=== PATIENT | female | born 1985 | race Caucasian/White ===

== ENCOUNTER 2016-12-13 18:57 | Emergency (ER) | payer SELFPAY ==
--- NOTE | 2016-12-13 19:12 | EDM.PDOC ---
ED HPI GENERAL MEDICAL PROBLEM - General Chief Complaint: Headache Stated Complaint: PT HAS MIGRAINE Time Seen by Provider: 12/13/16 19:04 - History of Present Illness INITIAL COMMENTS - FREE TEXT/NARRATIVE: HISTORY AND PHYSICAL: History of present illness: Patient 31-year-old female history of anxiety or presents with a concern of sharp pains in her had left ear pain and facial paresthesias she is extremely anxious on arrival she denies any other neurological signs or symptoms or any other complaint Review of systems: As per history of present illness and below otherwise all systems reviewed and negative. Past medical history: As per history of present illness and as reviewed below otherwise noncontributory. Surgical history: As per history of present illness and as reviewed below otherwise noncontributory. Social history: No reported history of drug or alcohol abuse. Family history: As per history of present illness and as reviewed below otherwise noncontributory. Physical exam: HEENT: Atraumatic, normocephalic, pupils reactive, negative for conjunctival pallor or scleral icterus, mucous membranes moist, throat clear, neck supple, nontender, trachea midline. TMs are normal bilaterally Lungs: Clear to auscultation, breath sounds equal bilaterally, chest nontender. Heart: S1S2, regular, negative for clicks, rubs, or JVD. Abdomen: Soft, nondistended, nontender. Negative for masses or hepatosplenomegaly. Negative for costovertebral tenderness. Pelvis: Stable nontender. 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: Deferred. Rectal: Deferred. Extremities: Atraumatic, negative for cords or calf pain. Neurovascular unremarkable. Neuro: Awake, alert, oriented, anxious. Cranial nerves II through XII unremarkable. Cerebellum unremarkable. Motor and sensory unremarkable throughout. Exam nonfocal. Diagnostics: CT brain Therapeutics: None Impression: #1 cephalgia/otalgia #2 anxiety Definitive disposition and diagnosis as appropriate pending reevaluation and review of above. headache Pain Score (Numeric/FACES): 1 - Related Data Allergies Allergy/AdvReac Type Severity Reaction Status Date / Time codeine Allergy Irritabilit Verified 12/13/16 19:02 y Home Meds: Home Meds Levothyroxine Sodium [Synthroid] 1 tab PO DAILY 02/28/16 [History] Mesalamine [Lialda] 2 tab PO DAILY 02/28/16 [History] Multivitamin with Minerals [Hair, Skin and Nails] 1 tab PO DAILY 02/28/16 [ History] #103/Iron Fumarate/Fa [ ] 1 tab PO DAILY 02/28/16 [ History] prednisoLONE Acetate [Pred Forte 1% Ophth Susp] 1 drop EYEBOTH QID PRN 02/28/16 [History] Past Medical History - Past Health History Medical/Surgical History: Denies Medical/Surgical History HEENT History: Reports: None, Other (See Below) Other HEENT History: wears glasses, has iritis Cardiovascular History: Reports: None Other Cardiovascular History: HTN during Respiratory History: Reports: None Gastrointestinal History: Reports: None Other Gastrointestinal History: colitis 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 History: Reports: None 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 Musculoskeletal History: Reports: None Neurological History: Reports: None Psychiatric History: Reports: Anxiety Endocrine/Metabolic History: Reports: Hypothyroidism, Obesity/BMI 30+ Hematologic History: Reports: None Immunologic History: Reports: None Oncologic (Cancer) History: Reports: None Dermatologic History: Reports: None - Infectious Disease History Infectious Disease History: Reports: None - Past Surgical History Head Surgeries/Procedures: Reports: None Cardiovascular Surgical History: Reports: None Respiratory Surgical History: Reports: None GI Surgical History: Reports: Colonoscopy Female Surgical History: Reports: None Endocrine Surgical History: Reports: None Neurological Surgical History: Reports: None Musculoskeletal Surgical History: Reports: Arthroscopic Knee, Other (See Below) Oncologic Surgical History: Reports: None Social & Family History - Family History Family Medical History: Noncontributory - Tobacco Use Smoking Status *Q: Never Smoker Second Hand Smoke Exposure: No - Caffeine Use Caffeine Use: Reports: Coffee - Alcohol Use Days Per Week of Alcohol Use: 0 - Recreational Drug Use Recreational Drug Use: No Drug Use in Last 12 Months: No ED ROS GENERAL - Review of Systems Review Of Systems: ROS reveals no pertinent complaints other than HPI. ED EXAM, GENERAL - Physical Exam Exam: See Below (See dictation) Course - Vital Signs Last Recorded V/S: Last Vital Signs Temp 36.9 C 12/13/16 19:02 Pulse 71 12/13/16 19:02 Resp 16 12/13/16 19:02 BP 131/61 12/13/16 19:02 Pulse Ox 98 12/13/16 19:02 - Orders/Labs/Meds Orders: Active Orders 24 hr Category Date Time Status Head wo Cont [CT] Stat Exams 12/13/16 19:10 Ordered Departure - Departure Time of Disposition: 19:35 Disposition: Home, Self-Care 01 Clinical Impression: Cephalgia, Otalgia, Anxiety - Discharge Information Forms: ED Department Discharge Additional Instructions: The following information is given to patients seen in the emergency department who are being discharged to home. This information is to outline your options for follow-up care. We provide all patients seen in our emergency department with a follow-up referral. The need for follow-up, as well as the timing and circumstances, are variable depending upon the specifics of your emergency department visit. If you don't have a primary care physician on staff, we will provide you with a referral. We always advise you to contact your personal physician following an emergency department visit to inform them of the circumstance of the visit and for follow-up with them and/or the need for any referrals to a consulting specialist. The emergency department will also refer you to a specialist when appropriate. This referral assures that you have the opportunity for followup care with a specialist. All of these measure are taken in an effort to provide you with optimal care, which includes your followup. Under all circumstances we always encourage you to contact your private physician who remains a resource for coordinating your care. When calling for followup care, please make the office aware that this follow-up is from your recent emergency room visit. If for any reason you are refused follow-up, please contact the [facility] emergency department at and asked to speak to the emergency department charge nurse. Follow-up primary medical doctor wanted today's return as needed as discussed - My Orders Last 24 Hours: My Active Orders 12/13/16 19:10 Head wo Cont [CT] Stat - Assessment/Plan Last 24 Hours: My Active Orders 12/13/16 19:10 Head wo Cont [CT] Stat
[2016-12-13 20:26] VITALS: BP 107/66
--- NOTE | 2016-12-14 16:45 | CT ---
EXAM DATE: 12/13/16 PATIENT'S AGE: 31 Patient: GENNY RODRIGUEZ Facility: [place], [place] Site . Site : 1985 Study: CT Head [id number] 7:43:34 PM Ordering Physician: Sanchez Hernández Final Report: INDICATION: Headache TECHNIQUE: CT head without contrast. COMPARISON: None FINDINGS: CSF spaces: Within normal limits for age. Brain parenchyma: The smith-white differentiation is normal. No sign of mass, hemorrhage, or midline shift. Skull base and calvarium: The visualized paranasal sinuses and mastoid air cells demonstrate no acute or significant findings. The visualized orbits are grossly unremarkable. No skull fractures. IMPRESSION: Unremarkable noncontrast head CT. Please note that all CT scans at this facility use dose modulation, iterative reconstruction, and/or weight-based dosing when appropriate to reduce radiation dose to as low as reasonably achievable. Dictated by Andra Jara MD @ Dec 13 2016 7:58PM (Electronic Signature) Report Signed by Proxy. MTDD
== END 2016-12-13 20:23 | disposition home or self-care (01) ==
LOC: MW.ED 18:57
DX: R51 Headache (principal); F41.9 Anxiety disorder, unspecified; E66.9 Obesity, unspecified; Z98.890 Other specified postprocedural states; Z79.899 Other long term (current) drug therapy; Z88.5 Allergy status to narcotic agent
CPT/HCPCS: 70450; 70450-26; 99282; 99284-25

== ENCOUNTER 2018-07-25 01:42 | Emergency (ER) | payer OTHER ==
--- NOTE | 2018-07-25 01:45 | EDM.PDOC ---
ED HPI GENERAL MEDICAL PROBLEM - General Stated Complaint: PERSISTENT HEADACHE Time Seen by Provider: 07/25/18 01:45 Source of Information: Reports: Patient - History of Present Illness INITIAL COMMENTS - FREE TEXT/NARRATIVE: HISTORY AND PHYSICAL: History of present illness: [Patient presents with persistent headache 5 out of 10 right unilateral with scotomas and sister with migraine No vomiting chills sweats no chest pain dizziness or palpitation no bowel or urine symptoms ] Review of systems: As per history of present illness and below otherwise all systems reviewed and negative. Past medical history: As per history of present illness and as reviewed below otherwise noncontributory. Surgical history: As per history of present illness and as reviewed below otherwise noncontributory. Social history: No reported history of drug or alcohol abuse. Family history: As per history of present illness and as reviewed below otherwise noncontributory. Physical exam: HEENT: Atraumatic, normocephalic, pupils reactive, negative for conjunctival pallor or scleral icterus, mucous membranes moist, throat clear, neck supple, nontender, trachea midline. Tympanic membrane red and bulging on the right no mastoid tenderness left is dull no bulging no mastoid tenderness no meningeal signs no sinus tenderness mild pain with movement of the auricle Lungs: Clear to auscultation, breath sounds equal bilaterally, chest nontender. Heart: S1S2, regular, negative for clicks, rubs, or JVD. Abdomen: Soft, nondistended, nontender. Negative for masses or hepatosplenomegaly. Negative for costovertebral tenderness. Pelvis: Stable nontender. 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: Deferred. Rectal: Deferred. Extremities: Atraumatic, negative for cords or calf pain. Neurovascular unremarkable. Neuro: Awake, alert, oriented. Cranial nerves II through XII unremarkable. Cerebellum unremarkable. Motor and sensory unremarkable throughout. Exam nonfocal. Diagnostics:Clinical CT head on file from 2017 ] Therapeutics: [Will saline Zofran Toradol Maxalt Amoxicillin Cortisporin ] Impression: [ migraine ] Otitis media/otitis externa Definitive disposition and diagnosis as appropriate pending reevaluation and review of above. headache Pain Score (Numeric/FACES): 7 - Related Data Allergies Allergy/AdvReac Type Severity Reaction Status Date / Time codeine Allergy Irritabilit Verified 05/16/18 15:53 y Home Meds: Home Meds Levothyroxine Sodium [Synthroid] 1 tab PO DAILY 02/28/16 [History] prednisoLONE Acetate [Pred Forte 1% Ophth Susp] 1 drop EYEBOTH QID PRN 02/28/16 [History] Past Medical History - Past Health History Medical/Surgical History: Denies Medical/Surgical History HEENT History: Reports: None, Other (See Below) Other HEENT History: wears glasses, has iritis Cardiovascular History: Reports: None Other Cardiovascular History: HTN during Respiratory History: Reports: None Gastrointestinal History: Reports: None Other Gastrointestinal History: colitis 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 History: Reports: 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 Musculoskeletal History: Reports: None Neurological History: Reports: None Psychiatric History: Reports: Anxiety Endocrine/Metabolic History: Reports: Hypothyroidism, Obesity/BMI 30+ Hematologic History: Reports: None Immunologic History: Reports: None Oncologic (Cancer) History: Reports: None Dermatologic History: Reports: None - Infectious Disease History Infectious Disease History: Reports: None - Past Surgical History Head Surgeries/Procedures: Reports: None Cardiovascular Surgical History: Reports: None Respiratory Surgical History: Reports: None GI Surgical History: Reports: Colonoscopy Female Surgical History: Reports: None Endocrine Surgical History: Reports: None Neurological Surgical History: Reports: None Musculoskeletal Surgical History: Reports: Arthroscopic Knee, Other (See Below) Oncologic Surgical History: Reports: None Social & Family History - Family History Family Medical History: Noncontributory - Caffeine Use Caffeine Use: Reports: Coffee ED ROS GENERAL - Review of Systems Review Of Systems: See Below ED EXAM, GENERAL - Physical Exam Exam: See Below Course - Vital Signs Last Recorded V/S: Last Vital Signs Temp 97.8 F 07/25/18 01:53 Pulse 78 07/25/18 01:53 Resp 18 07/25/18 01:53 BP 131/95 H 07/25/18 01:53 Pulse Ox 98 07/25/18 01:53 - Orders/Labs/Meds Meds: Medications Discontinued Medications Generic Name Dose Route Start Last Admin Trade Name Freq PRN Reason Stop Dose Admin Sodium Chloride 1,000 mls @ 999 mls/hr 07/25/18 01:46 07/25/18 02:14 Normal Saline IV 07/25/18 02:46 999 mls/hr STAT ONE Administration Ketorolac Tromethamine 30 mg 07/25/18 01:46 07/25/18 02:15 Toradol IVPUSH 07/25/18 01:47 30 mg ONETIME ONE Administration Ondansetron HCl 8 mg 07/25/18 01:46 07/25/18 02:18 Zofran IVPUSH 07/25/18 01:47 8 mg ONETIME ONE Administration Departure - Departure Time of Disposition: 02:54 Disposition: Home, Self-Care 01 Condition: Good Clinical Impression: Migraine, Otitis media, Otitis externa - Discharge Information Referrals: Ruddy Braga MD [Primary Care Provider] - Additional Instructions: The following information is given to patients seen in the emergency department who are being discharged to home. This information is to outline your options for follow-up care. We provide all patients seen in our emergency department with a follow-up referral. The need for follow-up, as well as the timing and circumstances, are variable depending upon the specifics of your emergency department visit. If you don't have a primary care physician on staff, we will provide you with a referral. We always advise you to contact your personal physician following an emergency department visit to inform them of the circumstance of the visit and for follow-up with them and/or the need for any referrals to a consulting specialist. The emergency department will also refer you to a specialist when appropriate. This referral assures that you have the opportunity for follow-up care with a specialist. All of these measure are taken in an effort to provide you with optimal care, which includes your follow-up. Under all circumstances we always encourage you to contact your private physician who remains a resource for coordinating your care. When calling for follow-up care, please make the office aware that this follow-up is from your recent emergency room visit. If for any reason you are refused follow-up, please contact the [facility] emergency department at and asked to speak to the emergency department charge nurse.
[2018-07-25] MEDS ORDERED: Sodium Chloride 0.9% 1,000 ML IV ONE (01:46)
[2018-07-25] MEDS ORDERED: Ketorolac 30 MG/ML SDV IVPUSH ONE (01:46)
[2018-07-25] MEDS ORDERED: Ondansetron 4 MG/2 ML SDV IVPUSH ONE (01:46)
[2018-07-25] MEDS ORDERED: SUMAtriptan 50 MG Tab PO ONE (02:57)
[2018-07-25 03:31] VITALS: BP 109/61
== END 2018-07-25 03:15 | disposition home or self-care (01) ==
LOC: MW.ED 01:42
DX: G43.909 Migraine, unspecified, not intractable, without status migrainosus (principal); H60.91 Unspecified otitis externa, right ear; H66.91 Otitis media, unspecified, right ear; E03.9 Hypothyroidism, unspecified; Z88.5 Allergy status to narcotic agent; Z79.899 Other long term (current) drug therapy
CPT/HCPCS: 96361; 96374; 96375; 99284; A9270; J1885; J2405; J7040; 99283

== ENCOUNTER 2018-10-13 23:39 | Emergency (ER) | payer OTHER ==
[2018-10-14] MEDS ORDERED: Ketorolac 30 MG/ML SDV IVPUSH ONE
[2018-10-14] MEDS ORDERED: Ondansetron 4 MG/2 ML SDV IVPUSH ONE
[2018-10-14] MEDS ORDERED: Sodium Chloride 0.9% 2.5 ML Syringe FLUSH PRN
[2018-10-14] MEDS ORDERED: Sodium Chloride 0.9% 1,000 ML IV ONE
[2018-10-14] MEDS ORDERED: Sodium Chloride 0.9% 10 ML Syringe FLUSH PRN
[2018-10-14] MEDS ORDERED: methylPREDNISolone Sodium Succinate 125 MG/2 ML SDV IVPUSH ONE
--- NOTE | 2018-10-14 00:02 | EDM.PDOC ---
ED HPI GENERAL MEDICAL PROBLEM - General Chief Complaint: Headache Stated Complaint: HEADACHE Time Seen by Provider: 10/13/18 23:55 - History of Present Illness INITIAL COMMENTS - FREE TEXT/NARRATIVE: HISTORY AND PHYSICAL: History of present illness: The patient is a 33-year-old female who follows in our clinics and has a long- standing history of chronic headaches and migraines mostly on the right side and was last seen here in July for similar headache and presents with a right-sided headache that started earlier today it has been ongoing all day. She says that initially his Tylenol was working but now it is not working and she does have Imitrex but she doesn't like to use it because she doesn't like the way it makes her feel. The patient has a scheduled appointment with neurology in the summer and has never had imaging or these headaches. She is concerned because it came on very suddenly and the Tylenol initially worked and then stopped working. She has nausea with this but no vomiting, she has not had any recent trauma or upper respiratory infection and she has no neck or back pain. The patient denies but is not taking any control. Review of systems: As per history of present illness and below otherwise all systems reviewed and negative. Past medical history: As per history of present illness and as reviewed below otherwise noncontributory. Surgical history: As per history of present illness and as reviewed below otherwise noncontributory. Social history: No reported history of drug or alcohol abuse. Family history: As per history of present illness and as reviewed below otherwise noncontributory. Physical exam: General: Well-developed well-nourished female who is nontoxic and vital signs are noted by me. HEENT: Atraumatic, normocephalic, pupils reactive, negative for conjunctival pallor or scleral icterus, mucous membranes moist, throat clear, neck supple, nontender, trachea midline. There is no cervical adenopathy or nuchal rigidity Lungs: Clear to auscultation, breath sounds equal bilaterally, chest nontender. Heart: S1S2, regular rate and rhythm no overt murmurs Abdomen: Soft, nondistended, nontender. NABS Pelvis: Deferred 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: Deferred. Rectal: Deferred. Extremities: Atraumatic, negative for cords or calf pain. Neurovascular unremarkable. Neuro: Awake, alert, oriented. Cranial nerves II through XII unremarkable. Cerebellum unremarkable. Motor and sensory unremarkable throughout. Exam nonfocal. Diagnostics: UCG, CT scan of the head Therapeutics: IV fluids Toradol Zofran and Solu-Medrol Impression: Headache/migraine and with history of same Definitive disposition and diagnosis as appropriate pending reevaluation and review of above. Right Headache Pain Score (Numeric/FACES): 8 - Related Data Allergies Allergy/AdvReac Type Severity Reaction Status Date / Time codeine Allergy Irritabilit Verified 10/13/18 23:55 y Home Meds: Home Meds Levothyroxine Sodium [Synthroid] 100 mg PO DAILY 02/28/16 [History] Past Medical History - Past Health History Medical/Surgical History: Denies Medical/Surgical History HEENT History: Reports: None, Other (See Below) Other HEENT History: wears glasses, has iritis Cardiovascular History: Reports: Other (See Below) Other Cardiovascular History: HTN during Respiratory History: Reports: None Gastrointestinal History: Reports: None Other Gastrointestinal History: colitis 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 History: Reports: None 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 Musculoskeletal History: Reports: None Neurological History: Reports: None Psychiatric History: Reports: Anxiety Endocrine/Metabolic History: Reports: Hypothyroidism, Obesity/BMI 30+ Hematologic History: Reports: None Immunologic History: Reports: None Oncologic (Cancer) History: Reports: None Dermatologic History: Reports: None - Infectious Disease History Infectious Disease History: Reports: None - Past Surgical History Head Surgeries/Procedures: Reports: None Cardiovascular Surgical History: Reports: None Respiratory Surgical History: Reports: None GI Surgical History: Reports: Colonoscopy Female Surgical History: Reports: None Endocrine Surgical History: Reports: None Neurological Surgical History: Reports: None Musculoskeletal Surgical History: Reports: Arthroscopic Knee, Other (See Below) Oncologic Surgical History: Reports: None Social & Family History - Family History Family Medical History: Noncontributory - Tobacco Use Smoking Status *Q: Never Smoker - Caffeine Use Caffeine Use: Reports: Coffee - Recreational Drug Use Recreational Drug Use: No ED ROS GENERAL - Review of Systems Review Of Systems: ROS reveals no pertinent complaints other than HPI. ED EXAM, GENERAL - Physical Exam Exam: See Below (see Dictation) Course - Vital Signs Last Recorded V/S: Last Vital Signs Temp 36.4 C 10/13/18 23:49 Pulse 97 10/13/18 23:49 Resp BP 121/83 10/13/18 23:49 Pulse Ox 99 10/13/18 23:49 - Orders/Labs/Meds Orders: Active Orders 24 hr Category Date Time Status Sodium Chloride 0.9% [Saline Flush] Med 10/14/18 00:00 Active 10 ml FLUSH ASDIRECTED PRN Sodium Chloride 0.9% [Saline Flush] Med 10/14/18 00:00 Active 2.5 ml FLUSH ASDIRECTED PRN Saline Lock Insert [OM.PC] Stat Oth 10/14/18 00:00 Ordered Medication Orders Sodium Chloride (Saline Flush) 10 ml FLUSH ASDIRECTED PRN PRN Reason: Keep Vein Open Last Admin: 10/14/18 00:23 Dose: 10 ml Sodium Chloride (Saline Flush) 2.5 ml FLUSH ASDIRECTED PRN PRN Reason: Keep Vein Open Last Admin: 10/14/18 00:23 Dose: 2.5 ml Labs: Laboratory Tests 10/14/18 Range/Units 00:04 Urine HCG, Qual NEGATIVE (NEGATIVE) Meds: Medications Generic Name Dose Route Start Last Admin Trade Name Freq PRN Reason Stop Dose Admin Sodium Chloride 10 ml 10/14/18 00:00 10/14/18 00:23 Saline Flush FLUSH 10 ml ASDIRECTED PRN Administration Keep Vein Open Sodium Chloride 2.5 ml 10/14/18 00:00 10/14/18 00:23 Saline Flush FLUSH 2.5 ml ASDIRECTED PRN Administration Keep Vein Open Discontinued Medications Generic Name Dose Route Start Last Admin Trade Name Freq PRN Reason Stop Dose Admin Sodium Chloride 1,000 mls @ 999 mls/hr 10/14/18 00:00 10/14/18 00:23 Normal Saline IV 10/14/18 01:00 999 mls/hr STAT ONE Administration Ketorolac Tromethamine 30 mg 10/14/18 00:00 10/14/18 00:23 Toradol IVPUSH 10/14/18 00:01 30 mg ONETIME ONE Administration Methylprednisolone Sodium Succinate 125 mg 10/14/18 00:00 10/14/18 00:23 Solu-Medrol IVPUSH 10/14/18 00:01 125 mg ONETIME ONE Administration Ondansetron HCl 4 mg 10/14/18 00:00 10/14/18 00:23 Zofran IVPUSH 10/14/18 00:01 4 mg ONETIME ONE Administration Departure - Departure Time of Disposition: 01:12 Disposition: Home, Self-Care 01 Condition: Good Clinical Impression: Migraine headache Qualifiers: Migraine type: unspecified Status migrainosus presence: without status migrainosus Intractability: not intractable Qualified Code(s): G43.909 - Migraine, unspecified, not intractable, without status migrainosus - Discharge Information Referrals: PCP,None [Primary Care Provider] - Forms: ED Department Discharge Additional Instructions: The following information is given to patients seen in the emergency department who are being discharged to home. This information is to outline your options for follow-up care. We provide all patients seen in our emergency department with a follow-up referral. The need for follow-up, as well as the timing and circumstances, are variable depending upon the specifics of your emergency department visit. If you don't have a primary care physician on staff, we will provide you with a referral. We always advise you to contact your personal physician following an emergency department visit to inform them of the circumstance of the visit and for follow-up with them and/or the need for any referrals to a consulting specialist. The emergency department will also refer you to a specialist when appropriate. This referral assures that you have the opportunity for followup care with a specialist. All of these measure are taken in an effort to provide you with optimal care, which includes your followup. Under all circumstances we always encourage you to contact your private physician who remains a resource for coordinating your care. When calling for followup care, please make the office aware that this follow-up is from your recent emergency room visit. If for any reason you are refused follow-up, please contact the [facility] emergency department at and ask to speak to the emergency department charge nurse. [facility] Primary care- Internal Medicine and Family [address] [address] Please contact your provider in the clinic and discuss with them follow-up care for this ER visit. Push push hydration and rest and return to ER as needed and as discussed. Use [id number] meds as you choose for pain management. - My Orders Last 24 Hours: My Active Orders 10/14/18 00:00 Sodium Chloride 0.9% [Saline Flush] 10 ml FLUSH ASDIRECTED PRN Sodium Chloride 0.9% [Saline Flush] 2.5 ml FLUSH ASDIRECTED PRN Saline Lock Insert [OM.PC] Stat - Assessment/Plan Last 24 Hours: My Active Orders 10/14/18 00:00 Sodium Chloride 0.9% [Saline Flush] 10 ml FLUSH ASDIRECTED PRN Sodium Chloride 0.9% [Saline Flush] 2.5 ml FLUSH ASDIRECTED PRN Saline Lock Insert [OM.PC] Stat
--- NOTE | 2018-10-14 01:04 | CT ---
INDICATION: Headache TECHNIQUE: CT Head without i.v. contrast. COMPARISON: 12/23/16 FINDINGS: CSF space: The ventricles are normal for age. Brain: No evidence of mass, acute infarction or hemorrhage is seen. No mass-effect or midline shift is seen. The brain parenchyma is otherwise normal in appearance with preservation of the smith-white matter junction. Calvarium: The visualized paranasal sinuses are well aerated. The mastoid air cells are clear. The visualized orbits are grossly unremarkable. The calvarium is unremarkable in appearance with no fractures identified. IMPRESSION: 1. No evidence of acute infarction, intracranial hemorrhage, or mass-effect seen. Please note that all CT scans at this facility use dose modulation, iterative reconstruction, and/or weight-based dosing when appropriate to reduce radiation dose to as low as reasonably achievable. Dictated by: Jenaro Gonzalez MD @ 10/14/2018 01:03:01 (Electronically Signed)
[2018-10-14 01:30] VITALS: BP 111/63
== END 2018-10-14 01:28 | disposition home or self-care (01) ==
LOC: MW.ED 23:39
DX: G43.909 Migraine, unspecified, not intractable, without status migrainosus (principal); E03.9 Hypothyroidism, unspecified; E66.9 Obesity, unspecified; Z88.5 Allergy status to narcotic agent; Z79.899 Other long term (current) drug therapy
CPT/HCPCS: 70450; 81025; 96361; 96374; 96375; 99284; J1885; J2405; J2930; J7040; 99283

== ENCOUNTER 2019-07-01 12:02 | Emergency (ER) | payer OTHER ==
[2019-07-01] MEDS ORDERED: Sodium Chloride 0.9% 1,000 ML IV ONE (12:44)
[2019-07-01] MEDS ORDERED: Famotidine 20 MG/2 ML SDV IVPUSH ONE (12:44)
[2019-07-01] MEDS ORDERED: Ondansetron 4 MG/2 ML SDV IVPUSH ONE (13:17)
--- NOTE | 2019-07-01 13:45 | EDM.PDOC ---
ED HPI GENERAL MEDICAL PROBLEM - General Chief Complaint: Abdominal Pain Stated Complaint: liver issues Time Seen by Provider: 07/01/19 12:08 - History of Present Illness INITIAL COMMENTS - FREE TEXT/NARRATIVE: Patient seen by primary care physician who ordered lab test for abdominal pain however patient was having further abdominal pain in the right upper quadrant and unable to get prescribed imaging done, she has a history of ulcerative colitis. Increased pain and concern about worsening of condition prompted her to come to emergency department for further evaluation. Denies fever chills or bloody stool. Positive nausea without vomiting. Positive anorexia. Pain worse with p.o. intake. Gallbladder removed 3 years ago. Denies fever chills or chest pain or shortness of breath RUQ Pain Score (Numeric/FACES): 6 - Related Data Allergies Allergy/AdvReac Type Severity Reaction Status Date / Time codeine Allergy Irritabilit Verified 07/01/19 12:25 y Home Meds: Home Meds Levothyroxine Sodium [Synthroid] 100 mg PO DAILY 02/28/16 [History] Lansoprazole [Prevacid] 30 mg PO DAILY #30 capsule. 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 Musculoskeletal History: Reports: None Neurological History: Reports: None Psychiatric History: Reports: Anxiety Endocrine/Metabolic History: Reports: Hypothyroidism, Obesity/BMI 30+ Hematologic History: Reports: None Immunologic History: Reports: None Oncologic (Cancer) History: Reports: None Dermatologic History: Reports: None - Infectious Disease History Infectious Disease History: Reports: Chicken Pox - Past Surgical History Head Surgeries/Procedures: Reports: None Cardiovascular Surgical History: Reports: None Respiratory Surgical History: Reports: None GI Surgical History: Reports: Cholecystectomy, Colonoscopy Female Surgical History: Reports: None Endocrine Surgical History: Reports: None Neurological Surgical History: Reports: None Musculoskeletal Surgical History: Reports: Arthroscopic Knee, Other (See Below) Oncologic Surgical History: Reports: None Social & Family History - Family History Family Medical History: Noncontributory - Tobacco Use Smoking Status *Q: Never Smoker Second Hand Smoke Exposure: No - Caffeine Use Caffeine Use: Reports: None - Recreational Drug Use Recreational Drug Use: No ED ROS GENERAL - Review of Systems Review Of Systems: See Below Constitutional: Denies: Fever, Malaise HEENT: Reports: No Symptoms Respiratory: Reports: No Symptoms Cardiovascular: Reports: No Symptoms Endocrine: Reports: No Symptoms GI/Abdominal: Reports: Abdominal Pain, Anorexia, Decreased Appetite. Denies: Black Stool, Bloody Stool, Diarrhea Musculoskeletal: Reports: No Symptoms Skin: Reports: No Symptoms Neurological: Reports: No Symptoms Psychiatric: Reports: No Symptoms Hematologic/Lymphatic: Reports: No Symptoms ED EXAM, GI/ABD - Physical Exam Exam: See Below Exam Limited By: No Limitations General Appearance: Alert, WD/WN, No Apparent Distress, Mild Distress Eyes: Bilateral: Normal Appearance Ears: Normal External Exam, Normal Canal, Hearing Grossly Normal, Normal TMs Nose: Normal Inspection, Normal Mucosa, No Blood Throat/Mouth: Normal Inspection, Normal Lips, Normal Teeth, Normal Gums, Normal Oropharynx, Normal Voice, No Airway Compromise Head: Atraumatic, Normocephalic Neck: Normal Inspection, Supple, Non-Tender, Full Range of Motion Respiratory/Chest: No Respiratory Distress, Lungs Clear, Normal Breath Sounds, No Accessory Muscle Use, Chest Non-Tender Cardiovascular: Normal Peripheral Pulses, Regular Rate, Rhythm, No Edema, No Gallop, No JVD, No Murmur, No Rub GI/Abdominal Exam: Normal Bowel Sounds, Soft, No Organomegaly, No Distention, Other (Mild epigastric and right upper quadrant tenderness there is no guarding rebound tenderness or palpable hernia) Back Exam: Normal Inspection, Full Range of Motion, NT Extremities: Normal Inspection, Normal Range of Motion, Non-Tender, Normal Capillary Refill, No Pedal Edema Neurological: Alert, Oriented, CN II-XII Intact, Normal Cognition, Normal Gait, Normal Reflexes, No Motor/Sensory Deficits Psychiatric: Normal Affect, Normal Mood Skin Exam: Warm, Dry, Intact, Normal Color, No Rash Lymphatic: No Adenopathy Course - Vital Signs Last Recorded V/S: Last Vital Signs Temp 97 F 07/01/19 15:12 Pulse 73 07/01/19 15:12 Resp 20 07/01/19 15:12 BP 115/70 07/01/19 15:12 Pulse Ox 99 01/22/20 15:12 - Orders/Labs/Meds Labs: Laboratory Tests 07/01/19 07/01/19 07/01/19 Range/Units 12:55 12:56 12:56 WBC 8.13 (4.0-11.0) K/uL RBC 4.64 (4.30-5.90) M/uL Hgb 13.8 (12.0-16.0) g/dL Hct 40.9 (36.0-46.0) % MCV 88.1 (80.0-98.0) fL MCH 29.7 (27.0-32.0) pg MCHC 33.7 (31.0-37.0) g/dL RDW Std Deviation 40.4 (28.0-62.0) fl RDW Coeff of Ezequiel 13 (11.0-15.0) % Plt Count 298 (150-400) K/uL MPV 9.00 (7.40-12.00) fL Neut % (Auto) 62.8 (48.0-80.0) % Lymph % (Auto) 26.7 (16.0-40.0) % Harlan % (Auto) 6.9 (0.0-15.0) % Eos % (Auto) 3.4 (0.0-7.0) % Baso % (Auto) 0.2 (0.0-1.5) % Neut # (Auto) 5.1 (1.4-5.7) K/uL Lymph # (Auto) 2.2 (0.6-2.4) K/uL [place]lan # (Auto) 0.6 (0.0-0.8) K/uL Eos # (Auto) 0.3 (0.0-0.7) K/uL Baso # (Auto) 0.0 (0.0-0.1) K/uL Nucleated RBC % 0.0 /100WBC Nucleated RBCs # 0 K/uL INR 0.91 Sodium (136-145) mmol/L Potassium (3.5-5.1) mmol/L Chloride (98-107) mmol/L Carbon Dioxide (21.0-32.0) mmol/L BUN (7.0-18.0) mg/dL Creatinine (0.6-1.0) mg/dL Est Cr Clr Drug Dosing mL/min Estimated GFR (MDRD) ml/min Glucose (74-106) mg/dL Calcium (8.5-10.1) mg/dL Total Bilirubin (0.2-1.0) mg/dL AST (15-37) IU/L ALT (14-63) IU/L Alkaline Phosphatase (46-116) U/L Total Protein (6.4-8.2) g/dL Albumin (3.4-5.0) g/dL Globulin (2.6-4.0) g/dL Albumin/Globulin Ratio (0.9-1.6) Lipase (73-393) U/L Urine HCG, Qual NEGATIVE (NEGATIVE) 07/01/19 Range/Units 12:56 WBC (4.0-11.0) K/uL RBC (4.30-5.90) M/uL Hgb (12.0-16.0) g/dL Hct (36.0-46.0) % MCV (80.0-98.0) fL MCH (27.0-32.0) pg MCHC (31.0-37.0) g/dL RDW Std Deviation (28.0-62.0) fl RDW Coeff of Ezequiel (11.0-15.0) % Plt Count (150-400) K/uL MPV (7.40-12.00) fL Neut % (Auto) (48.0-80.0) % Lymph % (Auto) (16.0-40.0) % Harlan % (Auto) (0.0-15.0) % Eos % (Auto) (0.0-7.0) % Baso % (Auto) (0.0-1.5) % Neut # (Auto) (1.4-5.7) K/uL Lymph # (Auto) (0.6-2.4) K/uL [place]lan # (Auto) (0.0-0.8) K/uL Eos # (Auto) (0.0-0.7) K/uL Baso # (Auto) (0.0-0.1) K/uL Nucleated RBC % /100WBC Nucleated RBCs # K/uL INR Sodium 140 (136-145) mmol/L Potassium 3.7 (3.5-5.1) mmol/L Chloride 105 (98-107) mmol/L Carbon Dioxide 28.5 (21.0-32.0) mmol/L BUN 13 (7.0-18.0) mg/dL Creatinine 0.7 (0.6-1.0) mg/dL Est Cr Clr Drug Dosing 96.33 mL/min Estimated GFR (MDRD) > 60.0 ml/min Glucose 99 (74-106) mg/dL Calcium 9.5 (8.5-10.1) mg/dL Total Bilirubin 0.3 (0.2-1.0) mg/dL AST 12 L (15-37) IU/L ALT 22 (14-63) IU/L Alkaline Phosphatase 69 (46-116) U/L Total Protein 7.9 (6.4-8.2) g/dL Albumin 3.7 (3.4-5.0) g/dL Globulin 4.2 H (2.6-4.0) g/dL Albumin/Globulin Ratio 0.9 (0.9-1.6) Lipase 276 (73-393) U/L Urine HCG, Qual (NEGATIVE) Meds: Medications Discontinued Medications Generic Name Dose Route Start Last Admin Trade Name Freq PRN Reason Stop Dose Admin Famotidine 20 mg 07/01/19 12:44 07/01/19 13:02 Pepcid IVPUSH 07/01/19 12:45 20 mg ONETIME ONE Administration Sodium Chloride 1,000 mls @ 999 mls/hr 07/01/19 12:44 07/01/19 13:02 Normal Saline IV 07/01/19 13:44 999 mls/hr .Bolus ONE Administration Iopamidol 100 ml 07/01/19 19:43 07/01/19 19:47 Isovue Multipack-370 (76%) IVPUSH 07/01/19 19:44 100 ml ONETIME STA Administration Ondansetron HCl 4 mg 07/01/19 13:17 07/01/19 13:21 Zofran IVPUSH 07/01/19 13:18 4 mg ONETIME ONE Administration Departure - Departure Time of Disposition: 15:36 Disposition: Home, Self-Care 01 Condition: Good Clinical Impression: Abdominal pain Qualifiers: Abdominal location: unspecified location Qualified Code(s): R10.9 - Unspecified abdominal pain - Discharge Information *PRESCRIPTION DRUG MONITORING PROGRAM REVIEWED*: Not Applicable *COPY OF PRESCRIPTION DRUG MONITORING REPORT IN PATIENT ANTONI: Not Applicable Prescriptions: Lansoprazole [Prevacid] 30 mg PO DAILY #30 capsule. Instructions: Abdominal Pain, Adult, [id number] Referrals: PCP,Unknown [Primary Care Provider] - Forms: ED Department Discharge Care Plan Goals: The following information is given to patients seen in the emergency department who are being discharged to home. This information is to outline your options for follow-up care. We provide all patients seen in our emergency department with a follow-up referral. The need for follow-up, as well as the timing and circumstances, are variable depending upon the specifics of your emergency department visit. If you don't have a primary care physician on staff, we will provide you with a referral. We always advise you to contact your personal physician following an emergency department visit to inform them of the circumstance of the visit and for follow-up with them and/or the need for any referrals to a consulting specialist. The emergency department will also refer you to a specialist when appropriate. This referral assures that you have the opportunity for follow-up care with a specialist. All of these measure are taken in an effort to provide you with optimal care, which includes your follow-up. Under all circumstances we always encourage you to contact your private physician who remains a resource for coordinating your care. When calling for follow-up care, please make the office aware that this follow-up is from your recent emergency room visit. If for any reason you are refused follow-up, please contact the [facility] Emergency Department at and asked to speak to the emergency department charge nurse. [facility] Primary [facility] [address] [place] [id number] [address] [address] Sepsis Event Note - Evaluation Sepsis Screening Result: No Definite Risk - Focused Exam Date Exam was Performed: 07/02/19 Time Exam was Performed: 07:22 - Problem List Review Problem List Initiated/Reviewed/Updated: Yes
[2019-07-01 13:48] LABS: BLOOD UREA NITROGEN,BUN 13 mg/dL (7.0-18.0); CARBON DIOXIDE,CO2 28.5 mmol/L (21.0-32.0); CHLORIDE,CL 105 mmol/L (98-107); GLUCOSE RANDOM 99 mg/dL (74-106); LIPASE 276 U/L (73-393); POTASSIUM,K 3.7 mmol/L (3.5-5.1); SODIUM,NA 140 mmol/L (136-145)
--- NOTE | 2019-07-01 14:52 | CT ---
CT abdomen and pelvis Technique: Multiple axial sections were obtained from above the dome of the diaphragm inferiorly through the pubic symphysis. Intravenous contrast was utilized. No oral contrast has been given. Findings: Visualized lung bases show nothing acute. Liver contains no focal parenchymal abnormality. Spleen appears within normal limits. Adrenal glands show no nodule. Pancreas is within normal limits. Surgical clips are seen from prior cholecystectomy. Adrenal glands show no nodule. Kidneys show symmetric contrast enhancement without hydronephrosis or mass. Aorta shows no aneurysm. No retroperitoneal adenopathy or mesenteric abnormalities are seen. No pelvic mass or adenopathy is seen. Cyst is noted within the right ovary measuring 2.5 cm which is most likely due to a dominant follicle. Appendix is seen which is normal in size. Bone window settings were reviewed which appear within normal limits for the patient's age. No acute osseous finding is appreciated. Impression: 1. No abnormality identified on CT study of the abdomen and pelvis. No etiology is seen for the patient's right lower quadrant pain. Diagnostic code #2 This report was dictated in Mountain Standard Time
[2019-07-01 15:12] VITALS: BP 115/70; PULSE 73
[2019-07-01] MEDS ORDERED: Iopamidol 755 MG/ML 500 ML Multipack Bottle IVPUSH STA (19:43)
== END 2019-07-01 16:00 | disposition home or self-care (01) ==
LOC: MW.ED 12:02
DX: R10.11 Right upper quadrant pain (principal); R10.13 Epigastric pain; R11.0 Nausea; E03.9 Hypothyroidism, unspecified; E66.9 Obesity, unspecified; Z90.49 Acquired absence of other specified parts of digestive tract; Z88.5 Allergy status to narcotic agent; Z79.899 Other long term (current) drug therapy
CPT/HCPCS: 36415; 74177; 80053; 81025; 83690; 85025; 85610; 96361; 96374; 96375; 99284; J2405; J7030; Q9967; S0028; J3490

== ENCOUNTER 2020-01-23 17:50 | Emergency (ER) | payer SELFPAY ==
[2020-01-23] MEDS ORDERED: Ondansetron 4 MG/2 ML SDV IVPUSH ONE (17:59)
[2020-01-23] MEDS ORDERED: Sodium Chloride 0.9% 1,000 ML IV ONE (17:59)
--- NOTE | 2020-01-23 18:14 | EDM.PDOC ---
ED HPI GENERAL MEDICAL PROBLEM - General Chief Complaint: General Stated Complaint: dizzy Time Seen by Provider: 01/23/20 17:53 Source of Information: Reports: Patient History Limitations: Reports: No Limitations - History of Present Illness INITIAL COMMENTS - FREE TEXT/NARRATIVE: 34F PMHx UC not on steroids or immunosuppressants presents for dizziness/near- syncope. Patient notes she has had a UC flair for last week with roughly 5-8 episodes watery diarrhea. Associated with nausea but no vomiting. No abdominal pain. Feels typical of her UC flairs. No recent abx. No fevers. Today felt like she was going to pass out but was able to sit down before falling. L arm Pain Score (Numeric/FACES): 2 - Related Data Allergies Allergy/AdvReac Type Severity Reaction Status Date / Time No Known Allergies Allergy Verified 01/23/20 18:00 Home Meds: Home Meds Levothyroxine Sodium [Synthroid] 100 mg PO DAILY 02/28/16 [History] Ondansetron [Zofran ODT] 4 mg PO Q6H PRN #12 tab.dis 01/23/20 [Rx] Past Medical History - Past Health History Medical/Surgical History: Denies Medical/Surgical History HEENT History: Reports: None, Other (See Below) Other HEENT History: wears glasses, has iritis Cardiovascular History: Reports: Other (See Below) Other Cardiovascular History: HTN during Respiratory History: Reports: None Gastrointestinal History: Reports: None Other Gastrointestinal History: colitis 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 History: Reports: None 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 Musculoskeletal History: Reports: None Neurological History: Reports: None Psychiatric History: Reports: Anxiety Endocrine/Metabolic History: Reports: Hypothyroidism, Obesity/BMI 30+ Hematologic History: Reports: None Immunologic History: Reports: None Oncologic (Cancer) History: Reports: None Dermatologic History: Reports: None - Infectious Disease History Infectious Disease History: Reports: Chicken Pox - Past Surgical History Head Surgeries/Procedures: Reports: None Cardiovascular Surgical History: Reports: None Respiratory Surgical History: Reports: None GI Surgical History: Reports: Cholecystectomy, Colonoscopy Female Surgical History: Reports: None Endocrine Surgical History: Reports: None Neurological Surgical History: Reports: None Musculoskeletal Surgical History: Reports: Arthroscopic Knee, Other (See Below) Oncologic Surgical History: Reports: None Social & Family History - Family History Family Medical History: Noncontributory - Tobacco Use Smoking Status *Q: Never Smoker - Caffeine Use Caffeine Use: Reports: None - Recreational Drug Use Recreational Drug Use: No ED ROS GENERAL - Review of Systems Review Of Systems: Comprehensive ROS is negative, except as noted in HPI. ED EXAM, GENERAL - Physical Exam Exam: See Below Exam Limited By: Altered Mental Status General Appearance: Alert, WD/WN, No Apparent Distress Eye Exam: Bilateral Eye: PERRL Head: Atraumatic, Normocephalic Respiratory/Chest: No Respiratory Distress, Lungs Clear, Normal Breath Sounds, No Accessory Muscle Use Cardiovascular: Normal Peripheral Pulses, Regular Rate, Rhythm GI/Abdominal: Soft, Non-Tender, No Distention Extremities: Normal Inspection Neurological: Alert, Oriented Psychiatric: Normal Affect, Normal Mood Skin Exam: Warm, Dry EKG INTERPRETATION EKG Date: 01/23/20 Time: 18:30 Rhythm: NSR Rate (Beats/Min): 75 [place]: Normal P-Wave: Present QRS: Normal ST-T: Normal QT: Normal AK/PQ Interval: 166 Course - Vital Signs Last Recorded V/S: Last Vital Signs Temp 98.1 F 01/23/20 18:00 Pulse 100 01/23/20 18:00 Resp 20 01/23/20 18:00 BP 154/92 H 01/23/20 18:00 Pulse Ox 100 01/23/20 18:00 Orthostatic Blood Pressure [ 133/71 Standing] Orthostatic Blood Pressure [ 135/93 Sitting] Orthostatic Blood Pressure [ 154/92 Supine] - Orders/Labs/Meds Orders: Active Orders 24 hr Category Date Time Status EKG Documentation Completion [RC] STAT Care 01/23/20 18:15 Active Sodium Chloride 0.9% [Normal Saline] 1,000 ml Med 01/23/20 17:59 Active IV .Bolus Medication Orders Sodium Chloride (Normal Saline) 1,000 mls @ 999 mls/hr IV .Bolus ONE Stop: 01/23/20 18:59 Last Admin: 01/23/20 18:18 Dose: 999 mls/hr Documented by: ANGELY Labs: Laboratory Tests 01/23/20 01/23/20 01/23/20 Range/Units 18:17 18:17 18:17 WBC 8.14 (4.0-11.0) K/uL RBC 4.51 (4.30-5.90) M/uL Hgb 13.4 (12.0-16.0) g/dL Hct 40.0 (36.0-46.0) % MCV 88.7 (80.0-98.0) fL MCH 29.7 (27.0-32.0) pg MCHC 33.5 (31.0-37.0) g/dL RDW Std Deviation 40.3 (28.0-62.0) fl RDW Coeff of Ezequiel 13 (11.0-15.0) % Plt Count 331 (150-400) K/uL MPV 8.70 (7.40-12.00) fL Neut % (Auto) 57.0 (48.0-80.0) % Lymph % (Auto) 26.8 (16.0-40.0) % [place] % (Auto) 9.2 (0.0-15.0) % Eos % (Auto) 6.9 (0.0-7.0) % Baso % (Auto) 0.1 (0.0-1.5) % Neut # (Auto) 4.6 (1.4-5.7) K/uL Lymph # (Auto) 2.2 (0.6-2.4) K/uL [place] # (Auto) 0.8 (0.0-0.8) K/uL Eos # (Auto) 0.6 (0.0-0.7) K/uL Baso # (Auto) 0.0 (0.0-0.1) K/uL Nucleated RBC % 0.0 /100WBC Nucleated RBCs # 0 K/uL Lactate 1.0 (0.20-2.00) mmol/L Sodium 135 L (136-145) mmol/L Potassium 3.5 (3.5-5.1) mmol/L Chloride 101 (98-107) mmol/L Carbon Dioxide 24.5 (21.0-32.0) mmol/L BUN 10 (7.0-18.0) mg/dL Creatinine 1.0 (0.6-1.0) mg/dL Est Cr Clr Drug Dosing 66.81 mL/min Estimated GFR (MDRD) > 60.0 ml/min Glucose 110 H (74-106) mg/dL Calcium 8.6 (8.5-10.1) mg/dL Magnesium 1.9 (1.8-2.4) mg/dL Total Bilirubin 0.4 (0.2-1.0) mg/dL AST 13 L (15-37) IU/L ALT 23 (14-63) IU/L Alkaline Phosphatase 84 (46-116) U/L Total Protein 8.0 (6.4-8.2) g/dL Albumin 3.8 (3.4-5.0) g/dL Globulin 4.2 H (2.6-4.0) g/dL Albumin/Globulin Ratio 0.9 (0.9-1.6) HCG, Qual (NEG) 01/23/20 Range/Units 18:17 WBC (4.0-11.0) K/uL RBC (4.30-5.90) M/uL Hgb (12.0-16.0) g/dL Hct (36.0-46.0) % MCV (80.0-98.0) fL MCH (27.0-32.0) pg MCHC (31.0-37.0) g/dL RDW Std Deviation (28.0-62.0) fl RDW Coeff of Ezequiel (11.0-15.0) % Plt Count (150-400) K/uL MPV (7.40-12.00) fL Neut % (Auto) (48.0-80.0) % Lymph % (Auto) (16.0-40.0) % [place] % (Auto) (0.0-15.0) % Eos % (Auto) (0.0-7.0) % Baso % (Auto) (0.0-1.5) % Neut # (Auto) (1.4-5.7) K/uL Lymph # (Auto) (0.6-2.4) K/uL [place] # (Auto) (0.0-0.8) K/uL Eos # (Auto) (0.0-0.7) K/uL Baso # (Auto) (0.0-0.1) K/uL Nucleated RBC % /100WBC Nucleated RBCs # K/uL Lactate (0.20-2.00) mmol/L Sodium (136-145) mmol/L Potassium (3.5-5.1) mmol/L Chloride (98-107) mmol/L Carbon Dioxide (21.0-32.0) mmol/L BUN (7.0-18.0) mg/dL Creatinine (0.6-1.0) mg/dL Est Cr Clr Drug Dosing mL/min Estimated GFR (MDRD) ml/min Glucose (74-106) mg/dL Calcium (8.5-10.1) mg/dL Magnesium (1.8-2.4) mg/dL Total Bilirubin (0.2-1.0) mg/dL AST (15-37) IU/L ALT (14-63) IU/L Alkaline Phosphatase (46-116) U/L Total Protein (6.4-8.2) g/dL Albumin (3.4-5.0) g/dL Globulin (2.6-4.0) g/dL Albumin/Globulin Ratio (0.9-1.6) HCG, Qual NEGATIVE (NEG) Meds: Medications Generic Name Dose Route Start Last Admin Trade Name Freq PRN Reason Stop Dose Admin Sodium Chloride 1,000 mls @ 999 mls/hr 01/23/20 17:59 01/23/20 18:18 Normal Saline IV 01/23/20 18:59 999 mls/hr .Bolus ONE Administration Discontinued Medications Generic Name Dose Route Start Last Admin Trade Name Freq PRN Reason Stop Dose Admin Ondansetron HCl 4 mg 01/23/20 17:59 01/23/20 18:18 Zofran IVPUSH 01/23/20 18:00 4 mg ONETIME ONE Administration - Re-Assessments/Exams Free Text/Narrative Re-Assessment/Exam: 01/23/20 18:46 Labs unremarkable; EKG normal. Will d/c with instructions for increased PO. Zofran for symptomatic relief. Return precautions discussed Departure - Departure Time of Disposition: 18:46 Disposition: Home, Self-Care 01 Condition: Good Clinical Impression: Dehydration - Discharge Information Prescriptions: Ondansetron [Zofran ODT] 4 mg PO Q6H PRN #12 tab.dis PRN Reason: Nausea Instructions: Dehydration, Adult, [id number] Referrals: PMD, PMD [Other] Forms: ED Department Discharge Additional Instructions: The following information is given to patients seen in the emergency department who are being discharged to home. This information is to outline your options for follow-up care. We provide all patients seen in our emergency department with a follow-up referral. The need for follow-up, as well as the timing and circumstances, are variable depending upon the specifics of your emergency department visit. If you don't have a primary care physician on staff, we will provide you with a referral. We always advise you to contact your personal physician following an emergency department visit to inform them of the circumstance of the visit and for follow-up with them and/or the need for any referrals to a consulting specialist. The emergency department will also refer you to a specialist when appropriate. This referral assures that you have the opportunity for follow-up care with a specialist. All of these measure are taken in an effort to provide you with optimal care, which includes your follow-up. Under all circumstances we always encourage you to contact your private physician who remains a resource for coordinating your care. When calling for follow-up care, please make the office aware that this follow-up is from your recent emergency room visit. If for any reason you are refused follow-up, please contact the [facility] Emergency Department at and asked to speak to the emergency department charge nurse. Sepsis Event Note (ED) - Evaluation Sepsis Screening Result: No Definite Risk - Focused Exam Vital Signs: Vital Signs Temp Pulse Resp BP Pulse Ox 01/23/20 18:00 98.1 F 100 20 154/92 H 100 - My Orders Last 24 Hours: My Active Orders 01/23/20 17:59 Sodium Chloride 0.9% [Normal Saline] 1,000 ml IV .Bolus 01/23/20 18:15 EKG Documentation Completion [RC] STAT - Assessment/Plan Last 24 Hours: My Active Orders 01/23/20 17:59 Sodium Chloride 0.9% [Normal Saline] 1,000 ml IV .Bolus 01/23/20 18:15 EKG Documentation Completion [RC] STAT
[2020-01-23 18:43] LABS: BLOOD UREA NITROGEN,BUN 10 mg/dL (7.0-18.0); CARBON DIOXIDE,CO2 24.5 mmol/L (21.0-32.0); CHLORIDE,CL 101 mmol/L (98-107); GLUCOSE RANDOM 110 mg/dL (74-106); POTASSIUM,K 3.5 mmol/L (3.5-5.1); SODIUM,NA 135 mmol/L (136-145)
[2020-01-23 19:40] VITALS: BP 112/61; PULSE 76
== END 2020-01-23 19:38 | disposition home or self-care (01) ==
LOC: MW.ED 17:50
DX: E86.0 Dehydration (principal); E03.9 Hypothyroidism, unspecified; E66.9 Obesity, unspecified; Z68.37 Body mass index [BMI] 37.0-37.9, adult; Z90.89 Acquired absence of other organs
CPT/HCPCS: 36415; 80053; 83605; 83735; 84703; 85025; 93005; 96361; 96374; 99284; J2405; J7030

== ENCOUNTER 2020-05-19 13:56 | Emergency (ER) | payer SELFPAY ==
--- NOTE | 2020-05-19 14:03 | EDM.PDOC ---
ED HPI GENERAL MEDICAL PROBLEM - General Chief Complaint: Headache Stated Complaint: HEADACHE Time Seen by Provider: 05/19/20 13:58 Source of Information: Reports: Patient History Limitations: Reports: No Limitations - History of Present Illness INITIAL COMMENTS - FREE TEXT/NARRATIVE: HISTORY AND PHYSICAL: History of present illness: Patient is a 34-year-old female who presents to the emergency room with complaints of a migraine headache, nausea and vomiting x3 days. She states on Saturday she started a decreased taper of her prednisone which she has been taking for ulcerative colitis. She believes the decrease in prednisone has caused her to get a migraine headache. Today she has had several bouts of nausea and vomiting and is concerned she did not have any of her prednisone today. She has no light sensitivity but does have mild noise sensitivity. Patient does have a history of migraine headaches, does not describe this as the worst headache of her life. Patient denies any fever, chills,change in vision, syncope or near syncope. Denies any chest pain, back pain, shortness of breath or cough. Denies any abdominal pain,diarrhea, constipation or dysuria. Has not noted any blood in urine or stool. No concern for . Patient has been eating and drinking appropriately. Review of systems: As per history of present illness and below otherwise all systems reviewed and negative. Past medical history: As per history of present illness and as reviewed below otherwise noncontributory. Surgical history: As per history of present illness and as reviewed below otherwise noncontributory. Social history: See social history for further information Family history: As per history of present illness and as reviewed below otherwise noncontributory. Physical exam: General: Well developed and well nourished. Alert and orientated x 3. Nontoxic in appearance and in no acute distress. Vital signs are stable and have been reviewed by me. Nursing notes were reviewed. HEENT: Atraumatic, normocephalic, pupils equal and reactive bilaterally, negative for conjunctival pallor or scleral icterus, mucous membranes moist, TMs normal bilaterally, throat clear, neck supple, nontender, trachea midline. No drooling or trismus noted. No meningeal signs. No hot potato voice noted. Lungs: Clear to auscultation, breath sounds equal bilaterally, chest nontender. Normal work of breathing, no accessory muscles used. Heart: S1S2, regular rate and rhythm without overt murmur Abdomen: Soft, nondistended, nontender. Negative for masses or hepatosplenomegaly. Negative for costovertebral tenderness. Skin: Intact, warm, dry. No lesions or rashes noted. Hematologic: No petechiae or purpra. Mucosa appropriate color and normal nail bed color and refill. Extremities: Atraumatic, moves all extremities per self without difficulty or deficits, negative for cords or calf pain. Neurovascular unremarkable. Neuro: Awake, alert, oriented. Cranial nerves II through XII unremarkable. Cerebellum unremarkable. Motor and sensory unremarkable throughout. Exam nonfocal. Psychiatric: Mood and affect are appropriate. Normal thought process. Answering questions appropriately. Notes: Patient had a head CT on 10/14/2018 which was normal. I do not see a need for any imaging at this time. Patient feels improved after the IV fluids and medications. I have talked with the patient about today's visit, in addition to providing specific details for plan of care. She will talk with Dr Chisholm about her steriod kaitlyn. Reassessment at the time of disposition demonstrates that the patient is in no acute distress. The patient is stable for discharge, counseling was provided and we discussed in great detail signs and symptoms that would prompt them to return to the Emergency Department. Medication, follow up and supportive care measures were reviewed and discussed. Voices understanding and is agreeable to plan of care. Denies any further questions or concerns at this time. Diagnostics: None Therapeutics: IV fluids, toradol, benadryl, zofran, reglan Prescription: Zofran Impression: Migraine Headache Plan: 1. Today you were given medications to help with your migraine headache. The Benadryl in the "migraine cocktail" may cause drowsiness, so if you feel drowsy - please do not drive. Please talk with Dr Chisholm about your Prednisone taper to discuss if this is contributing to your headaches. 2. Alternate Tylenol and Ibuprofen as needed for pain. Zofran as needed for nausea management. 3. We encourage you to follow up with your primary care provider and/or r ecommended specialist in the next few days for re-evaluation and further care/management. If your symptoms should worsen, new symptoms develop or any of the signs and symptoms we discussed should arise please return to the emergency room or call 911 (if needed). Definitive disposition and diagnosis as appropriate pending reevaluation and review of above. Head Pain Score (Numeric/FACES): 8 - Related Data Allergies Allergy/AdvReac Type Severity Reaction Status Date / Time codeine Allergy Other Verified 05/19/20 14:02 Home Meds: Home Meds Levothyroxine Sodium [Synthroid] 100 mg PO DAILY 02/28/16 [History] Ondansetron [Zofran ODT] 4 mg PO Q6H PRN #8 tab.dis 05/19/20 [Rx] predniSONE [Prednisone] 10 mg PO DAILY 05/19/20 [History] Past Medical History - Past Health History Medical/Surgical History: Denies Medical/Surgical History HEENT History: Reports: None, Other (See Below) Other HEENT History: wears glasses, has iritis Cardiovascular History: Reports: Other (See Below) Other Cardiovascular History: HTN during Respiratory History: Reports: None Gastrointestinal History: Reports: None Other Gastrointestinal History: colitis 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 History: Reports: None [employer]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 Musculoskeletal History: Reports: None Neurological History: Reports: None Psychiatric History: Reports: Anxiety Endocrine/Metabolic History: Reports: Hypothyroidism, Obesity/BMI 30+ Hematologic History: Reports: None Immunologic History: Reports: None Oncologic (Cancer) History: Reports: None Dermatologic History: Reports: None - Infectious Disease History Infectious Disease History: Reports: Chicken Pox - Past Surgical History Head Surgeries/Procedures: Reports: None Cardiovascular Surgical History: Reports: None Respiratory Surgical History: Reports: None GI Surgical History: Reports: Cholecystectomy, Colonoscopy Female Surgical History: Reports: None Endocrine Surgical History: Reports: None Neurological Surgical History: Reports: None Musculoskeletal Surgical History: Reports: Arthroscopic Knee, Other (See Below) Oncologic Surgical History: Reports: None Social & Family History - Family History Family Medical History: No Pertinent Family History - Caffeine Use Caffeine Use: Reports: None ED ROS GENERAL - Review of Systems Review Of Systems: Comprehensive ROS is negative, except as noted in HPI. - Physical Exam Exam: See Below (See dictation) Course - Vital Signs Last Recorded V/S: Last Vital Signs Temp 96.5 F L 05/19/20 14:03 Pulse 106 H 05/19/20 14:03 Resp 18 05/19/20 14:03 BP 147/90 H 05/19/20 14:03 Pulse Ox 98 05/19/20 14:03 - Orders/Labs/Meds Meds: Medications Discontinued Medications Generic Name Dose Route Start Last Admin Trade Name Stefani PRN Reason Stop Dose Admin Diphenhydramine HCl 25 mg 05/19/20 14:12 05/19/20 14:40 Benadryl IVPUSH 05/19/20 14:13 25 mg ONETIME ONE Administration Sodium Chloride 1,000 mls @ 999 mls/hr 05/19/20 14:12 05/19/20 14:41 Normal Saline IV 05/19/20 15:12 999 mls/hr STAT ONE Administration Ketorolac Tromethamine 30 mg 05/19/20 14:12 05/19/20 14:39 Toradol IVPUSH 05/19/20 14:13 30 mg ONETIME ONE Administration Metoclopramide HCl 10 mg 05/19/20 14:12 05/19/20 14:40 Reglan IV 05/19/20 14:13 10 mg ONETIME ONE Administration Ondansetron HCl 4 mg 05/19/20 14:12 05/19/20 14:39 Zofran IVPUSH 05/19/20 14:13 4 mg ONETIME ONE Administration Departure - Departure Time of Disposition: 15:20 Disposition: Home, Self-Care 01 Clinical Impression: Migraine headache without aura Qualifiers: Status migrainosus presence: without status migrainosus Intractability: not intractable Qualified Code(s): G43.009 - Migraine without aura, not intractable, without status migrainosus - Discharge Information Prescriptions: Ondansetron [Zofran ODT] 4 mg PO Q6H PRN #8 tab.dis PRN Reason: Nausea Instructions: Migraine Headache, [id number] Referrals: Tunde Chisholm MD [Primary Care Provider] - Forms: ED Department Discharge Additional Instructions: 1. Today you were given medications to help with your migraine headache. The Benadryl in the "migraine cocktail" may cause drowsiness, so if you feel drowsy - please do not drive. Please talk with Dr Chisholm about your Prednisone taper to discuss if this is contributing to your headaches. 2. Alternate Tylenol and Ibuprofen as needed for pain. Zofran as needed for nausea management. 3. We encourage you to follow up with your primary care provider and/or recommended specialist in the next few days for re-evaluation and further care/management. If your symptoms should worsen, new symptoms develop or any of the signs and symptoms we discussed should arise please return to the emergency room or call 911 (if needed). Sepsis Event Note (ED) - Focused Exam Vital Signs: Vital Signs Temp Pulse Resp BP Pulse Ox 05/19/20 14:03 96.5 F L 106 H 18 147/90 H 98
[2020-05-19] MEDS ORDERED: Ketorolac 30 MG/ML SDV IVPUSH ONE (14:12)
[2020-05-19] MEDS ORDERED: Sodium Chloride 0.9% 1,000 ML IV ONE (14:12)
[2020-05-19] MEDS ORDERED: Ondansetron 4 MG/2 ML SDV IVPUSH ONE (14:12)
[2020-05-19] MEDS ORDERED: diphenhydrAMINE 50 MG/ML SDV IVPUSH ONE (14:12)
[2020-05-19] MEDS ORDERED: Metoclopramide 10 MG/2 ML SDV IV ONE (14:12)
[2020-05-19 15:31] VITALS: BP 119/73; PULSE 94
== END 2020-05-19 15:32 | disposition home or self-care (01) ==
LOC: MW.ED 13:56
DX: G43.009 Migraine without aura, not intractable, without status migrainosus (principal); Z88.5 Allergy status to narcotic agent; E03.9 Hypothyroidism, unspecified; E66.9 Obesity, unspecified; Z68.35 Body mass index [BMI] 35.0-35.9, adult
CPT/HCPCS: 96374; 96375; 99283; J1200; J1885; J2405; J2765; J7030

== ENCOUNTER 2020-09-23 02:50 | Emergency (ER) | payer SELFPAY ==
[2020-09-23] MEDS ORDERED: Sodium Chloride 0.9% 1,000 ML IV ONE (03:22)
[2020-09-23] MEDS ORDERED: Sodium Chloride 0.9% 10 ML Syringe FLUSH PRN (03:22)
[2020-09-23] MEDS ORDERED: Sodium Chloride 0.9% 2.5 ML Syringe FLUSH PRN (03:22)
[2020-09-23] MEDS ORDERED: diphenhydrAMINE 50 MG/ML SDV IVPUSH ONE (03:23)
[2020-09-23] MEDS ORDERED: Promethazine 25 MG/ML SDV IM ONE (03:23)
[2020-09-23 03:54] LABS: BLOOD UREA NITROGEN,BUN 8 mg/dL (7.0-18.0); CARBON DIOXIDE,CO2 24.4 mmol/L (21.0-32.0); CHLORIDE,CL 104 mmol/L (98-107); GLUCOSE RANDOM 114 mg/dL (74-106); POTASSIUM,K 3.4 mmol/L (3.5-5.1); SODIUM,NA 138 mmol/L (136-145)
--- NOTE | 2020-09-23 04:04 | EDM.PDOC ---
ED HPI GENERAL MEDICAL PROBLEM - General Chief Complaint: Headache Stated Complaint: HEADACHE, VOMITING Time Seen by Provider: 09/23/20 03:07 - History of Present Illness INITIAL COMMENTS - FREE TEXT/NARRATIVE: HISTORY AND PHYSICAL: History of present illness: This is a 35-year-old female with history significant for migraine headaches, ulcerative colitis, recent diagnosis of coronavirus 3 weeks ago, who presents ER today after finding out recently that she is approximately 4 weeks by dates secondary to persistent headache that was not relieved with her Benadryl and Tylenol at home. Patient has any recent fevers, shakes, chills, nausea, vomiting, diarrhea, dysuria, frequency, urgency. Patient reports that she is tolerating p.o. solids and liquids well. Patient denies any double vision or blurred vision. Patient reports normally she will take ibuprofen for headache however secondary to her she has not taken any. Review of systems: As per history of present illness and below otherwise all systems reviewed and negative. Past medical history: As per history of present illness and as reviewed below otherwise noncontributory. Surgical history: As per history of present illness and as reviewed below otherwise noncontributory. Social history: No reported history of drug or alcohol abuse. Family history: As per history of present illness and as reviewed below otherwise noncontributo ry. Physical exam: This patient was seen and evaluated during the 2019 SARS-CoV-2 novel coronavirus pandemic period. Community viral transmission is ongoing at time of this encounter and the emergency department is operating under pandemic response procedures. Constitutional: Patient is oriented to person, place, and time. Appears well- developed and well-nourished. No distress. HEENT: Moist mucous membranes Head: Normocephalic and atraumatic Eyes: Right eye exhibits no discharge. Left eye exhibits no discharge. No scleral icterus Neck: Normal range of motion. No tracheal deviation present. Cardiovascular: Normal rate and regular rhythm. Pulmonary: Effort normal, no respiratory distress. Abdominal: No distention Musculoskeletal: Normal range of motion Neurologic: Alert and oriented to person, place and time. Skin: [place], warm and dry. Psychiatric: Normal mood and affect. Behavior is normal. Judgment and thought content normal. Nursing note and vital signs have been reviewed Diagnostics: CBC, CMP within normal limits. Urinalysis normal. Therapeutics: [NSS x1 L, Phenergan 25 mg IM, Benadryl 25 mg IV, Assessment and plan: This is a 35-year-old female with recent diagnosis of coronavirus who presents ER today secondary to headache. Patient does have a history of migraines in the past and a recent diagnosis of coronavirus and recently found out she is a pproximately 4 weeks . Patient was given 1 L of NSS, Phenergan and Benadryl IV with minimal relief in her headache. Patient headache at this time does not appear to be pathological in nature. Patient's CT scan of her head is been reviewed without any significant abnormalities in the recent past. Patient will be discharged home with instructions to call her primary care physician in the morning for further instructions on managing her headache. At this time, given her I do not feel comfortable medicating her any further I will have her follow-up with her doctor for further instructions. Reassessment at the time of disposition demonstrates that the patient is in no acute distress. The patient has remained stable throughout the entire ED visit and is without objective evidence for acute process requiring urgent intervention or hospitalization. The patient is stable for discharge, counseling is provided as documented above, discussed symptomatic treatment and specific conditions for return. I have spoken with the patient/caregiver and discussed todays findings, in addition to providing specific details for the plan of care. Questions are answered and there is agreement with the plan. Definitive disposition and diagnosis as appropriate pending reevaluation and review of above. headache Pain Score (Numeric/FACES): 7 - Related Data Allergies Allergy/AdvReac Type Severity Reaction Status Date / Time codeine Allergy Other Verified 09/23/20 03:22 Home Meds: Home Meds Levothyroxine Sodium [Synthroid] 100 mg PO DAILY 02/28/16 [History] No122/Iron/Folic Acid [ Multi Tablet] 1 each PO DAILY 09/23/20 [History] Past Medical History - Past Health History Medical/Surgical History: Denies Medical/Surgical History HEENT History: Reports: None, Other (See Below) Other HEENT History: wears glasses, has iritis Cardiovascular History: Reports: Other (See Below) Other Cardiovascular History: HTN during Respiratory History: Reports: None Gastrointestinal History: Reports: Other (See Below) Other Gastrointestinal History: colitis 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 History: Reports: None 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 Musculoskeletal History: Reports: None Neurological History: Reports: Migraines Psychiatric History: Reports: Anxiety Endocrine/Metabolic History: Reports: Hypothyroidism, Obesity/BMI 30+ 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 Hematologic History: Reports: None Immunologic History: Reports: None Oncologic (Cancer) History: Reports: None Dermatologic History: Reports: None - Infectious Disease History Infectious Disease History: Reports: Chicken Pox - Past Surgical History Head Surgeries/Procedures: Reports: None HEENT Surgical History: Reports: None Cardiovascular Surgical History: Reports: None Respiratory Surgical History: Reports: None GI Surgical History: Reports: Cholecystectomy, Colonoscopy Female Surgical History: Reports: None Endocrine Surgical History: Reports: None Neurological Surgical History: Reports: None Musculoskeletal Surgical History: Reports: Arthroscopic Knee, Other (See Below) Other Musculoskeletal Surgeries/Procedures:: closed reduction fx right arm Oncologic Surgical History: Reports: None Social & Family History - Family History Family Medical History: No Pertinent Family History - Caffeine Use Caffeine Use: Reports: None - Recreational Drug Use Recreational Drug Use: No ED ROS GENERAL - Review of Systems Review Of Systems: See Below ED EXAM, GENERAL - Physical Exam Exam: See Below Course - Vital Signs Last Recorded V/S: Last Vital Signs Temp 97.4 F 09/23/20 03:15 Pulse 78 09/23/20 03:15 Resp 18 09/23/20 03:15 BP 120/81 09/23/20 03:15 Pulse Ox 97 09/23/20 03:15 - Orders/Labs/Meds Orders: Active Orders 24 hr Category Date Time Status Sodium Chloride 0.9% [Normal Saline] 1,000 ml Med 09/23/20 03:22 Ordered IV .Bolus Sodium Chloride 0.9% [Saline Flush] Med 09/23/20 03:22 Ordered 10 ml FLUSH ASDIRECTED PRN Sodium Chloride 0.9% [Saline Flush] Med 09/23/20 03:22 Ordered 2.5 ml FLUSH ASDIRECTED PRN Saline Lock Insert [OM.PC] Stat Oth 09/23/20 03:22 Ordered Medication Orders Sodium Chloride (Normal Saline) 1,000 mls @ 999 mls/hr IV .Bolus ONE Stop: 09/23/20 04:22 Last Admin: 09/23/20 03:38 Dose: 999 mls/hr Documented by: PETER Sodium Chloride (Sodium Chloride 0.9% 10 Ml Syringe) 10 ml FLUSH ASDIRECTED PRN PRN Reason: Keep Vein Open Sodium Chloride (Sodium Chloride 0.9% 2.5 Ml Syringe) 2.5 ml FLUSH ASDIRECTED PRN PRN Reason: Keep Vein Open Labs: Laboratory Tests 09/23/20 09/23/20 09/23/20 Range/Units 03:30 03:30 03:30 WBC 7.57 (4.0-11.0) K/uL RBC 4.44 (4.30-5.90) M/uL Hgb 12.4 (12.0-16.0) g/dL Hct 38.0 (36.0-46.0) % MCV 85.6 (80.0-98.0) fL MCH 27.9 (27.0-32.0) pg MCHC 32.6 (31.0-37.0) g/dL RDW Std Deviation 41.5 (28.0-62.0) fl RDW Coeff of Ezequiel 13 (11.0-15.0) % Plt Count 354 (150-400) K/uL MPV 8.70 (7.40-12.00) fL Neut % (Auto) 61.2 (48.0-80.0) % Lymph % (Auto) 27.7 (16.0-40.0) % Harlan % (Auto) 8.2 (0.0-15.0) % Eos % (Auto) 2.8 (0.0-7.0) % Baso % (Auto) 0.1 (0.0-1.5) % Neut # (Auto) 4.6 (1.4-5.7) K/uL Lymph # (Auto) 2.1 (0.6-2.4) K/uL Harlan # (Auto) 0.6 (0.0-0.8) K/uL Eos # (Auto) 0.2 (0.0-0.7) K/uL Baso # (Auto) 0.0 (0.0-0.1) K/uL Nucleated RBC % 0.0 /100WBC Nucleated RBCs # 0 K/uL Sodium 138 (136-145) mmol/L Potassium 3.4 L (3.5-5.1) mmol/L Chloride 104 (98-107) mmol/L Carbon Dioxide 24.4 (21.0-32.0) mmol/L BUN 8 (7.0-18.0) mg/dL Creatinine 1.0 (0.6-1.0) mg/dL Est Cr Clr Drug Dosing 66.19 mL/min Estimated GFR (MDRD) > 60.0 ml/min Glucose 114 H (74-106) mg/dL Calcium 8.9 (8.5-10.1) mg/dL Urine Color YELLOW Urine Appearance CLEAR Urine pH 6.0 (5.0-8.0) Ur Specific [place] 1.015 (1.001-1.035) Urine Protein NEGATIVE (NEGATIVE) mg/dL Urine Glucose (UA) NEGATIVE (NEGATIVE) mg/dL Urine Ketones NEGATIVE (NEGATIVE) mg/dL Urine Occult Blood NEGATIVE (NEGATIVE) Urine Nitrite NEGATIVE (NEGATIVE) Urine Bilirubin NEGATIVE (NEGATIVE) Urine Urobilinogen 0.2 (<2.0) EU/dL Ur Leukocyte Esterase SMALL H (NEGATIVE) Urine RBC 0-1 (0-2/HPF) Urine WBC 1-3 (0-5/HPF) Ur Epithelial Cells FEW (NONE-FEW) Urine Bacteria FEW (NEGATIVE) Urine Mucus LIGHT (NONE-MOD) Urine HCG, Qual (NEGATIVE) 09/23/20 Range/Units 03:30 WBC (4.0-11.0) K/uL RBC (4.30-5.90) M/uL Hgb (12.0-16.0) g/dL Hct (36.0-46.0) % MCV (80.0-98.0) fL MCH (27.0-32.0) pg MCHC (31.0-37.0) g/dL RDW Std Deviation (28.0-62.0) fl RDW Coeff of Ezequiel (11.0-15.0) % Plt Count (150-400) K/uL MPV (7.40-12.00) fL Neut % (Auto) (48.0-80.0) % Lymph % (Auto) (16.0-40.0) % Harlan % (Auto) (0.0-15.0) % Eos % (Auto) (0.0-7.0) % Baso % (Auto) (0.0-1.5) % Neut # (Auto) (1.4-5.7) K/uL Lymph # (Auto) (0.6-2.4) K/uL Harlan # (Auto) (0.0-0.8) K/uL Eos # (Auto) (0.0-0.7) K/uL Baso # (Auto) (0.0-0.1) K/uL Nucleated RBC % /100WBC Nucleated RBCs # K/uL Sodium (136-145) mmol/L Potassium (3.5-5.1) mmol/L Chloride (98-107) mmol/L Carbon Dioxide (21.0-32.0) mmol/L BUN (7.0-18.0) mg/dL Creatinine (0.6-1.0) mg/dL Est Cr Clr Drug Dosing mL/min Estimated GFR (MDRD) ml/min Glucose (74-106) mg/dL Calcium (8.5-10.1) mg/dL Urine Color Urine Appearance Urine pH (5.0-8.0) Ur Specific [place] (1.001-1.035) Urine Protein (NEGATIVE) mg/dL Urine Glucose (UA) (NEGATIVE) mg/dL Urine Ketones (NEGATIVE) mg/dL Urine Occult Blood (NEGATIVE) Urine Nitrite (NEGATIVE) Urine Bilirubin (NEGATIVE) Urine Urobilinogen (<2.0) EU/dL Ur Leukocyte Esterase (NEGATIVE) Urine RBC (0-2/HPF) Urine WBC (0-5/HPF) Ur Epithelial Cells (NONE-FEW) Urine Bacteria (NEGATIVE) Urine Mucus (NONE-MOD) Urine HCG, Qual POSITIVE (NEGATIVE) Meds: Medications Generic Name Dose Route Start Last Admin Trade Name Freq PRN Reason Stop Dose Admin Sodium Chloride 1,000 mls @ 999 mls/hr 09/23/20 03:22 09/23/20 03:38 Normal Saline IV 09/23/20 04:22 999 mls/hr .Bolus ONE Administration Sodium Chloride 10 ml 09/23/20 03:22 Sodium Chloride 0.9% 10 Ml Syringe FLUSH ASDIRECTED PRN Keep Vein Open Sodium Chloride 2.5 ml 09/23/20 03:22 Sodium Chloride 0.9% 2.5 Ml Syringe FLUSH ASDIRECTED PRN Keep Vein Open Discontinued Medications Generic Name Dose Route Start Last Admin Trade Name Freq PRN Reason Stop Dose Admin Diphenhydramine HCl 25 mg 09/23/20 03:23 09/23/20 03:38 Diphenhydramine 50 Mg/Ml Sdv IVPUSH 09/23/20 03:24 25 mg ONETIME ONE Administration Promethazine HCl 25 mg 09/23/20 03:23 09/23/20 03:38 Promethazine 25 Mg/Ml Sdv IM 09/23/20 03:24 25 mg ONETIME ONE Administration Departure - Departure Time of Disposition: 04:02 Disposition: Home, Self-Care 01 Condition: Good Clinical Impression: Migraine, History of 2019 novel coronavirus disease (COVID-19), - Discharge Information Instructions: Recurrent Migraine Headache, 10 Things You Can Do to Manage Your COVID-19 Symptoms at Home - [facility] Referrals: Paige Barker NP [Primary Care Provider] - Additional Instructions: You were seen and evaluated in the ER today secondary to your headaches. Your headaches are likely multifactorial resulting from your history of migraines, your recent coronavirus infection, and your recent . In the ER you were given IV fluids as well as an additional dose of IV Benadryl and intra muscular Phenergan. This does not appear to have helped her headache is much as we would have liked however given your , we are limited in the medications that we can prescribe for you especially early on during her . Please continue take your Tylenol and Benadryl and call your doctor in the morning for further recommendations of headache medications during her . Hopefully once you are further out from your coronavirus infection, your headache will also improved. The following information is given to patients seen in the emergency department who are being discharged to home. This information is to outline your options for follow-up care. We provide all patients seen in our emergency department with a follow-up referral. The need for follow-up, as well as the timing and circumstances, are variable depending upon the specifics of your emergency department visit. If you don't have a primary care physician on staff, we will provide you with a referral. We always advise you to contact your personal physician following an emergency department visit to inform them of the circumstance of the visit and for follow-up with them and/or the need for any referrals to a consulting specialist. The emergency department will also refer you to a specialist when appropriate. This referral assures that you have the opportunity for follow-up care with a specialist. All of these measure are taken in an effort to provide you with optimal care, which includes your follow-up. Under all circumstances we always encourage you to contact your private physician who remains a resource for coordinating your care. When calling for follow-up care, please make the office aware that this follow-up is from your recent emergency room visit. If for any reason you are refused follow-up, please contact the Emergency Department at and asked to speak to the emergency department charge nurse. [facility] - Primary Care [address] [place] [id number] [facility] [address] [place] [id number] Sepsis Event Note (ED) - Evaluation Sepsis Screening Result: No Definite Risk - Focused Exam Vital Signs: Vital Signs Temp Pulse Resp BP Pulse Ox 09/23/20 03:15 97.4 F 78 18 120/81 97 - My Orders Last 24 Hours: My Active Orders 09/23/20 03:22 Sodium Chloride 0.9% [Normal Saline] 1,000 ml IV .Bolus Sodium Chloride 0.9% [Saline Flush] 10 ml FLUSH ASDIRECTED PRN Sodium Chloride 0.9% [Saline Flush] 2.5 ml FLUSH ASDIRECTED PRN Saline Lock Insert [OM.PC] Stat - Assessment/Plan Last 24 Hours: My Active Orders 09/23/20 03:22 Sodium Chloride 0.9% [Normal Saline] 1,000 ml IV .Bolus Sodium Chloride 0.9% [Saline Flush] 10 ml FLUSH ASDIRECTED PRN Sodium Chloride 0.9% [Saline Flush] 2.5 ml FLUSH ASDIRECTED PRN Saline Lock Insert [OM.PC] Stat
[2020-09-23 04:19] VITALS: BP 109/64; PULSE 72
== END 2020-09-23 04:20 | disposition home or self-care (01) ==
LOC: MW.ED 02:50
DX: O99.351 Diseases of the nervous system complicating pregnancy, first trimester (principal); G43.909 Migraine, unspecified, not intractable, without status migrainosus; O99.281 Endocrine, nutritional and metabolic diseases complicating pregnancy, first trimester; O99.211 Obesity complicating pregnancy, first trimester; E66.9 Obesity, unspecified; Z88.5 Allergy status to narcotic agent; Z79.899 Other long term (current) drug therapy; Z3A.01 Less than 8 weeks gestation of pregnancy; Z86.16 Personal history of COVID-19
CPT/HCPCS: 36415; 80048; 81001; 81025; 85025; 96372; 96374; 99283; J1200; J2550; J7030; 99284

== ENCOUNTER 2021-06-28 13:26 | Emergency (ER) | payer MEDICAID ==
[2021-06-28] MEDS ORDERED: Sodium Chloride 0.9% 2.5 ML Syringe FLUSH PRN (13:37)
[2021-06-28] MEDS ORDERED: Sodium Chloride 0.9% 10 ML Syringe FLUSH PRN (13:37)
[2021-06-28] MEDS ORDERED: Sodium Chloride 0.9% 1,000 ML IV ONE (13:37)
[2021-06-28 14:24] LABS: BLOOD UREA NITROGEN,BUN 10 mg/dL (7.0-18.0); CARBON DIOXIDE,CO2 26.1 mmol/L (21.0-32.0); CHLORIDE,CL 103 mmol/L (98-107); GLUCOSE RANDOM 106 mg/dL (74-106); POTASSIUM,K 3.7 mmol/L (3.5-5.1); SODIUM,NA 140 mmol/L (136-145)
[2021-06-28] MEDS ORDERED: Acetaminophen 325 MG Tab PO ONE (14:40)
[2021-06-28 16:28] VITALS: BP 112/74; PULSE 87
== END 2021-06-28 16:27 | disposition home or self-care (01) ==
LOC: MW.ED 13:26
DX: R42 Dizziness and giddiness (principal); F41.9 Anxiety disorder, unspecified; R00.0 Tachycardia, unspecified; E86.0 Dehydration; B34.9 Viral infection, unspecified; I10 Essential (primary) hypertension; E03.9 Hypothyroidism, unspecified; E66.9 Obesity, unspecified; Z68.31 Body mass index [BMI] 31.0-31.9, adult; Z88.5 Allergy status to narcotic agent; Z79.899 Other long term (current) drug therapy; Z20.822 Contact with and (suspected) exposure to COVID-19
CPT/HCPCS: 36415; 80053; 81003; 81025; 85025; 87635; 87804; 93005; 99284; A9270; J7030; U0002

== ENCOUNTER 2021-08-01 20:14 | Emergency (ER) | payer MEDICAID ==
[2021-08-01] MEDS ORDERED: predniSONE 20 MG Tab PO ONE (20:41)
[2021-08-01] MEDS ORDERED: diphenhydrAMINE 50 MG Cap PO ONE (20:42)
[2021-08-01 22:28] VITALS: BP 106/56; PULSE 80
== END 2021-08-01 22:27 | disposition home or self-care (01) ==
LOC: MW.ED 20:14
DX: T78.3XXA Angioneurotic edema, initial encounter (principal); I10 Essential (primary) hypertension; E03.9 Hypothyroidism, unspecified; E66.9 Obesity, unspecified; Z68.31 Body mass index [BMI] 31.0-31.9, adult; Z88.5 Allergy status to narcotic agent; Z79.899 Other long term (current) drug therapy
CPT/HCPCS: 70450; 99285; A9270; 99283

== ENCOUNTER 2021-10-15 16:12 | Day surgery (SDC) | payer MEDICAID ==
[2021-10-15] MEDS ORDERED: Sodium Chloride 0.9% 2.5 ML Syringe FLUSH PRN (16:43)
[2021-10-15] MEDS ORDERED: Sodium Chloride 0.9% 10 ML Syringe FLUSH PRN (16:43)
[2021-10-15] MEDS ORDERED: Ketorolac 30 MG/ML SDV IVPUSH ONE (16:43)
[2021-10-15] MEDS ORDERED: Sodium Chloride 0.9% 1,000 ML IV ONE (16:43)
[2021-10-15] MEDS ORDERED: Ondansetron 4 MG/2 ML SDV IVPUSH ONE (16:43)
[2021-10-15 18:45] LABS: BLOOD UREA NITROGEN,BUN 14 mg/dL (7.0-18.0); CARBON DIOXIDE,CO2 25.5 mmol/L (21.0-32.0); CHLORIDE,CL 104 mmol/L (98-107); GLUCOSE RANDOM 123 mg/dL (74-106); POTASSIUM,K 3.5 mmol/L (3.5-5.1); SODIUM,NA 141 mmol/L (136-145)
[2021-10-15] MEDS ORDERED: Iopamidol 755 MG/ML 500 ML Multipack Bottle IVPUSH ONE (19:00)
[2021-10-15] MEDS ORDERED: cefOXitin 2 GM in Premix Bag 1 BAG IV ONE (20:24)
[2021-10-15] MEDS ORDERED: ceFAZolin 1 GM Vial ONE (20:28)
[2021-10-15] MEDS ORDERED: Bupivacaine 0.5% 30 ML SDV ONE (20:28)
[2021-10-15] MEDS ORDERED: Dexmedetomidine 200 MCG/2 ML SDV ONE (20:33)
[2021-10-15] MEDS ORDERED: Propofol 200 MG/20 ML SDV ONE ×2 (20:33→21:39)
[2021-10-15] MEDS ORDERED: Midazolam 1 MG/ML 2 ML SDV ONE (20:33)
[2021-10-15] MEDS ORDERED: Water For Injection, Sterile 20 ML ONE (20:33)
[2021-10-15] MEDS ORDERED: Rocuronium Bromide 50 MG/5 ML Syringe ONE (20:33)
[2021-10-15] MEDS ORDERED: Esmolol 100 MG/10 ML SDV ONE (20:33)
[2021-10-15] MEDS: Lactated Ringers 1,000 ML IV SCH (20:35)
[2021-10-15] MEDS ORDERED: Dexamethasone 4 MG/ML 5 ML MDV ONE (20:37)
[2021-10-15] MEDS ORDERED: Succinylcholine/Sod PF 100 MG/5 ML SYRINGE IV ONE (21:16)
[2021-10-15] MEDS ORDERED: fentaNYL 100 MCG/2 ML SDV ONE ×2 (21:38→22:08)
[2021-10-15] MEDS ORDERED: Sugammadex Sodium 200 MG/2 ML VIAL ONE (21:55)
[2021-10-15] MEDS ORDERED: Ketorolac 30 MG/ML SDV ONE (21:55)
[2021-10-15] MEDS ORDERED: traMADol 50 MG Tab PO PRN (22:35)
[2021-10-15] MEDS ORDERED: Albuterol 0.083% 2.5 MG/3 ML Neb Soln NEB PRN (22:45)
[2021-10-15] MEDS ORDERED: HYDROmorphone 1 MG/ML Syringe IVPUSH PRN (22:45)
[2021-10-15] MEDS ORDERED: fentaNYL 100 MCG/2 ML SDV IVPUSH PRN (22:45)
[2021-10-15] MEDS ORDERED: Morphine 2 MG/ML SYRINGE IVPUSH PRN (22:45)
[2021-10-15] MEDS ORDERED: Naloxone 0.4 MG/ML SDV IVPUSH PRN (22:45)
[2021-10-15] MEDS ORDERED: Lactated Ringers 1,000 ML IV SCH (22:45)
[2021-10-16] MEDS: cefOXitin 1 GM in Premix Bag 1 BAG IV SCH ×2 (00:06→05:23)
[2021-10-16] MEDS: Lactated Ringers 1,000 ML IV SCH (00:07)
[2021-10-16 09:15] VITALS: BP 102/66; PULSE 94
[2021-10-16] MEDS ORDERED: Metoclopramide 10 MG/2 ML SDV IVPUSH ONE (09:39)
== END 2021-10-16 12:05 | disposition home or self-care (01) ==
LOC: MW.ED 16:12 → MW.SDS 20:27 → MW.MS 20:28 → MW.SDS 10-16 12:05
PROVIDERS: ATTEND Surgery
DX: K35.30 Acute appendicitis with localized peritonitis, without perforation or gangrene (principal); E03.9 Hypothyroidism, unspecified; E66.9 Obesity, unspecified; Z98.890 Other specified postprocedural states; Z01.812 Encounter for preprocedural laboratory examination; Z20.822 Contact with and (suspected) exposure to COVID-19; Z88.5 Allergy status to narcotic agent; Z79.899 Other long term (current) drug therapy
CPT/HCPCS: 36415; 44970; 74177; 80053; 81001; 81025; 83690; 85025; 87635; A9270; J0131; J0330; J0690; J0694; J1100; J1885; J2250; J2704; J3490; J7030; J7120; Q9967; 00840; 96374; 99285; 99285-25; J3010; U0002

== ENCOUNTER 2022-10-25 12:33 | Emergency (ER) | payer MEDICAID ==
[2022-10-25] MEDS ORDERED: Lactated Ringers 1,000 ML IV ONE (13:20)
[2022-10-25] MEDS ORDERED: diphenhydrAMINE 50 MG/ML SDV IVPUSH ONE (13:20)
[2022-10-25] MEDS ORDERED: Ketorolac 30 MG/ML SDV IVPUSH ONE (13:20)
[2022-10-25 13:51] LABS: BASOPHILS PERCENT AUTO 0.2 % (0.0-1.5); EOSINOPHILS ABSOLUTE AUTO 0.2 K/uL (0.0-0.7); EOSINOPHILS PERCENT AUTO 3.3 % (0.0-7.0); HEMATOCRIT 39.3 % (36.0-46.0); HEMOGLOBIN 13.3 g/dL (12.0-16.0); LYMPHOCYTES ABSOLUTE AUTO 1.6 K/uL (0.6-2.4); MEAN CORPUSCULAR HEMOGLOBIN 28.9 pg (27.0-32.0); MEAN CORPUSCULAR HGB CONC 33.8 g/dL (31.0-37.0); MEAN CORPUSCULAR VOLUME 85.4 fL (80.0-98.0); MONOCYTES ABSOLUTE AUTO 0.3 K/uL (0.0-0.8); MONOCYTES PERCENT AUTO 5.8 % (0.0-15.0); NEUTROPHILS ABSOLUTE AUTO 3.2 K/uL (1.4-5.7); NEUTROPHILS PERCENT AUTO 60.7 % (48.0-80.0); NRBC ABSOLUTE 0 K/uL; PLATELET COUNT,PLT 282 K/uL (150-400)
[2022-10-25 14:37] LABS: A/G RATIO 0.9 (0.9-1.6); ALBUMIN 3.7 g/dL (3.4-5.0); BILIRUBIN TOTAL 0.6 mg/dL (0.2-1.0); CALCIUM 8.9 mg/dL (8.5-10.1); CARBON DIOXIDE,CO2 25.2 mmol/L (21.0-32.0); CREATININE 0.8 mg/dL (0.6-1.0); EST CRCL DRUG DOSING (CG) 81.19 mL/min; POTASSIUM,K 3.6 mmol/L (3.5-5.1); PROTEIN TOTAL,TP 7.7 g/dL (6.4-8.2); TSH ULTRASENSITIVE 10.57 uIU/mL (0.36-3.74)
[2022-10-25 15:16] VITALS: BP 106/63; PULSE 64
[2022-10-25 15:30] LABS: T4 FREE 0.92 ng/dL (0.76-1.46)
== END 2022-10-25 15:15 | disposition home or self-care (01) ==
LOC: MW.ED 12:33
DX: R51.9 Headache, unspecified (principal); I10 Essential (primary) hypertension; E03.9 Hypothyroidism, unspecified; E66.9 Obesity, unspecified; Z68.33 Body mass index [BMI] 33.0-33.9, adult; Z88.5 Allergy status to narcotic agent
CPT/HCPCS: 36415; 70450; 80053; 82947; 84439; 84443; 84703; 85025; 96361; 96374; 96375; 99284; J1200; J1885; J7120

== ENCOUNTER 2025-03-23 02:42 | Emergency (ER) | payer MEDICAID ==
[2025-03-23] MEDS ORDERED: Sodium Chloride 0.9% 2.5 ML Syringe FLUSH PRN (02:51)
[2025-03-23] MEDS ORDERED: Sodium Chloride 0.9% 10 ML Syringe FLUSH PRN (02:51)
[2025-03-23] MEDS: Ondansetron 4 MG/2 ML SDV IVPUSH ONE (03:04)
[2025-03-23 03:15] LABS: BASOPHILS ABSOLUTE AUTO 0.03 K/uL (0.00-0.20); BASOPHILS PERCENT AUTO 0.3 % (0.0-1.0); EOSINOPHILS ABSOLUTE AUTO 0.53 K/uL (0.00-0.45); EOSINOPHILS PERCENT AUTO 5.9 % (0.0-6.0); IMMATURE GRAN ABSOLUTE AUTO 0.02 K/uL (0.00-0.05); IMMATURE GRAN PERCENT AUTO 0.2 % (0.0-0.4); LYMPHOCYTES ABSOLUTE AUTO 3.45 K/uL (1.00-4.80); LYMPHOCYTES PERCENT AUTO 38.5 % (24.0-44.0); MEAN PLATELET VOLUME 8.4 fL (9.4-12.3); MONOCYTES ABSOLUTE AUTO 0.62 K/uL (0.00-0.80); MONOCYTES PERCENT AUTO 6.9 % (0.0-8.0); NEUTROPHILS ABSOLUTE AUTO 4.31 K/uL (1.80-7.70); NEUTROPHILS PERCENT AUTO 48.2 % (41.0-71.0); NRBC ABSOLUTE 0.00 K/uL (0.00-0.02); NRBC PERCENT 0.0 /100WBC (0.0-0.2); PLATELET COUNT,PLT 350 K/uL (150-400); RED BLOOD CELL COUNT 4.40 M/uL (4.10-5.30); WHITE BLOOD CELL COUNT,WBC 8.96 K/uL (3.9-11.3)
[2025-03-23 03:43] LABS: ALANINE AMINOTRANSFERASE,ALT 15 IU/L (14-63); ASPARTATE AMNIOTRANSFERASE,AST 12 IU/L (15-37); BILIRUBIN TOTAL 0.4 mg/dL (0.2-1.0); BLOOD UREA NITROGEN,BUN 16 mg/dL (7.0-18.0); CARBON DIOXIDE,CO2 26.0 mmol/L (21.0-32.0); CHLORIDE,CL 105 mmol/L (98-107); CREATININE 0.8 mg/dL (0.6-1.0); EST CRCL DRUG DOSING (CG) 79.65 mL/min; GLUCOSE RANDOM 126 mg/dL (74-106); POTASSIUM,K 4.1 mmol/L (3.5-5.1); PRO B-TYPE NATRIUR PEPT,BNPPRO 26 pg/mL (0-125); PROTEIN TOTAL,TP 7.2 g/dL (6.4-8.2); SODIUM,NA 141 mmol/L (136-145)
[2025-03-23 03:45] LABS: A/G RATIO 0.9 (0.9-1.6); ESTIMATED GFR 97 mL/min (>60)
[2025-03-23 04:00] LABS: APPEARANCE,URINE CLEAR; GLUCOSE,URINE NEGATIVE (NEGATIVE); OCCULT BLOOD,URINE NEGATIVE (NEGATIVE)
[2025-03-23] MEDS: Ketorolac 30 MG/ML SDV IVPUSH ONE (04:09)
[2025-03-23] MEDS: Iopamidol 755 MG/ML 500 ML Multipack Bottle IVPUSH STA (05:15)
[2025-03-23 05:53] VITALS: BP 104/34; PULSE 78
== END 2025-03-23 05:51 | disposition home or self-care (01) ==
LOC: MW.ED 02:42
DX: S09.90XA Unspecified injury of head, initial encounter (principal); R55 Syncope and collapse; F41.9 Anxiety disorder, unspecified; R42 Dizziness and giddiness; Z88.5 Allergy status to narcotic agent; E66.9 Obesity, unspecified; Z90.49 Acquired absence of other specified parts of digestive tract; Z86.16 Personal history of COVID-19; X58.XXXA Exposure to other specified factors, initial encounter
CPT/HCPCS: 36415; 70450; 70496; 70498; 80053; 81003; 83735; 83880; 84484; 84703; 85025; 93005; 96360; 99284; A9270; J7030; Q9967; 93010; J2405